=== PATIENT | male | born 1980 | race Caucasian/White ===

== ENCOUNTER → 2017-04-12 | Outpatient (CLI) | payer BC | END | disposition home or self-care (01) | LOC: GMAJ 14:42 | PROVIDERS: ATTEND Family Medicine | DX: Z00.00 Encounter for general adult medical examination without abnormal findings (principal) ==

== ENCOUNTER 2019-04-14 05:28 | Day surgery (SDC) | payer BC ==
[2019-04-14] MEDS ORDERED: DEXAMETHASONE INJ 10 MG/ML VIAL ONE (07:00)
[2019-04-14] MEDS ORDERED: raNITIdine HCL INJ 25 MG/ML VIAL ONE (07:00)
[2019-04-14] MEDS ORDERED: PROPOFOL 200 MG/20 ML VIAL IV ONE (07:00)
[2019-04-14] MEDS ORDERED: LIDOCAINE 1% 10 ML VIAL INJ ONE (07:00)
[2019-04-14] MEDS ORDERED: LACTATED RINGERS 1,000 ML ONE (07:10)
[2019-04-14] MEDS ORDERED: BUPIVACAINE 0.25% W/EPI 50 ML VIAL INJ ONE ×2 (08:18→09:26)
[2019-04-14] MEDS ORDERED: fentaNYL CITRATE INJ 50 MCG/ML AMP ONE (09:17)
[2019-04-14] MEDS ORDERED: MIDAZOLAM INJ 2 MG/2 ML VIAL ONE (09:17)
[2019-04-14] MEDS ORDERED: KETAMINE HCL 100 MG/ML VIAL ONE (09:17)
[2019-04-14] MEDS ORDERED: ROCURONIUM BROMIDE 10 MG/ML VIAL ONE (09:17)
[2019-04-14] MEDS ORDERED: LACTATED RINGERS 1,000 ML IVS ONE ×3 (10:02)
--- NOTE | 2019-04-14 10:25 | OP ---
DATE OF PROCEDURE: 04/14/19 PREOPERATIVE DIAGNOSIS: 1. Anal bleeding. POSTOPERATIVE DIAGNOSIS: 1. Hemorrhoids, internal and external, grade 3 on exam. PROCEDURE: 1. Hemorrhoid banding times 3. 2. Pudendal nerve block, bilateral, for postoperative pain control. SURGEON: Houston Gaines MD ANESTHESIA: General and local. PROCEDURE: The patient had some back pain, so we did not roll him prone, so we put him in the lithotomy position which he felt would be comfortable for him. He was prepped and draped in sterile fashion. On exam, he did have some external hemorrhoids as noted, not thrombosed and not significant on the posterior right with a little bit larger one, kind of a tag accentuated from his relaxation. It was not that apparent in the office. Digital rectal exam was normal. On exam, no fissure or fistula were seen. On gentle anal speculum exam, there was some significant internal hemorrhoids seen. The left anterior showed stigmata of recent bleed. A band was placed. We positioned a couple of times to make sure we got well proximal to the dentate line. There was also larger complex in the right posterior. This was banded likewise above the transition point and then another one more towards on the midline on the left for a third band. No other significant internal hemorrhoids were seen. Again, there were some external components. He was advised this could swell after banding. Although rare, it is possible. We will see how he does with the banding. It does appear this was the reason for his bleeding and if it is resolved, we should not need a colonoscopy at this time given his age of 39. He was then awakened and taken to Recovery to be discharged. #[id number] [facility]
[2019-04-14] MEDS ORDERED: ONDANSETRON ODT 8 MG TAB ONE (11:13)
[2019-04-14] MEDS ORDERED: ONDANSETRON ODT (ER DISP) 8 MG TAB PO ONE (11:15)
[2019-04-14 12:48] VITALS: BP 122/74
[2019-04-14 12:49] VITALS: TEMP 69.8; O2SAT 97
== END 2019-04-14 11:50 | disposition home or self-care (01) ==
LOC: AMB 05:28
PROVIDERS: ATTEND Surgery
DX: K64.8 Other hemorrhoids (principal); K64.4 Residual hemorrhoidal skin tags; G89.18 Other acute postprocedural pain; K59.00 Constipation, unspecified; E78.00 Pure hypercholesterolemia, unspecified; Z88.6 Allergy status to analgesic agent; Z88.5 Allergy status to narcotic agent; Z79.899 Other long term (current) drug therapy
CPT/HCPCS: 00902; 46221; 64450; J1100; J2250; J2780; J3010; J3490; J7120

== ENCOUNTER → 2019-10-19 | Outpatient (CLI) | payer BC | LOC: GMAJ 14:57 | PROVIDERS: ATTEND Family Medicine | DX: Z00.00 Encounter for general adult medical examination without abnormal findings (principal) ==